=== PATIENT | male | born 1970 | race Caucasian/White ===

== ENCOUNTER 2017-12-02 12:46 | Emergency (ER) | payer BC, SELFPAY ==
[2017-12-02 12:48] VITALS: BP 161/81; PULSE 95; RESP 18; TEMP 37.2; O2SAT 94; BMI 31.7
--- NOTE | 2017-12-02 13:00 | EKG12_ITS ---
Test Reason : Blood Pressure : / mmHG Vent. Rate : 082 BPM Atrial Rate : 082 BPM P-R Int : 152 ms QRS Dur : 084 ms QT Int : 348 ms P-R-T Axes : 049 068 038 degrees QTc Int : 406 ms Normal sinus rhythm Normal ECG Confirmed by MATHEW HARDING MD ([id number]), greeting card editor BRENDA CARLSON ([id number]) on 12/05/2017 8:45:17 AM Referred By: ASTON Confirmed By:MATHEW HARDING MD
[2017-12-02] MEDS: Ipratropium/Albuterol Sulfate 3 ML AMPUL.NEB INHALATION (13:13)
[2017-12-02 13:15] VITALS: PULSE 103; RESP 16; O2SAT 98
--- NOTE | 2017-12-02 13:20 | RAD_ITS ---
STUDY: X-RAY CHEST REASON FOR EXAM: Male, 47 years old. Persistent cough. TECHNIQUE: Single frontal view of the chest. COMPARISON: December 26, 2012 FINDINGS: The lungs are clear and expanded. There is no demonstrated pleural abnormality. Normal size heart. Normal mediastinum and justyna. Normal visualized pulmonary arteries. Normal visualized aortic arch and descending thoracic aorta. Normal visualized thoracic spine. Normal visualized ribs, clavicles, and shoulders. There is no demonstrated abnormality of the visualized soft tissue structures of the upper abdomen. RAD/Chest 1 View (Portable) IMPRESSION: No acute cardiopulmonary process. Electronically Signed: Gayle Cardozo MD at 14:31 EDT Tel , Service support ,
[2017-12-02 13:43] LABS: Anion Gap 7 (5-15); BUN 13 mg/dL (7-18); BUN/Creat Ratio 12.4 RATIO (10-20); Calcium,Total 8.6 mg/dL (8.5-10.1); Chloride 105 mmol/L (98-107); Creatinine, Serum 1.05 mg/dL (0.70-1.30); EST Glomerular Filtration Rate 80 mL/min (>60); Est Glom Filt Rate - Afr Amer 97 mL/min (>60); Estimated Creatinine Clearance 86.04 ml/min; Glucose 96 mg/dL (74-106); Potassium 3.9 mmol/L (3.5-5.1); Sodium Level 140 mmol/L (136-145)
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
[2017-12-02 13:45] LABS: Hematocrit 44.8 % (40-54); Hemoglobin 15.4 g/dl (13.0-16.5); Lymphocyte % 10.4 % (19-41); Mean Corp Hgb Conc 34.4 g/gl (32-36); Mean Corpuscular Hgb 30.3 pg (27.0-32.0); Mean Platelet Vol. 10.3 fl (6.2-12.0); Neutrophil % 74.1 % (47-70); Platelet Count 204 K/mm3 (150-450); RBC Distribution Width CV 11.8 % (11.6-14.6); RBC Distribution Width SD 37.4 fl (35.1-43.9); Red Blood Count 5.09 M/mm3 (4.6-6.2); White Blood Count 6.1 K/mm3 (4.4-11.0)
[2017-12-02 13:46] LABS: Absolute Lymphocyte Count 0.63 X10^3/ul (0.83-4.51); Absolute Neutrophil Count 4.5 X10^3/uL (2.0-7.7); Basophil# 0.04 X10^3/uL; Basophil% 0.7 % (0-1); Eosinophil# 0.22 X10^3/uL; Eosinophils% 3.6 % (0-5); Lymphocyte # 0.63 X10^3/ul (4.0); Monocyte# 0.68 X10^3/uL; Monocyte% 11.2 % (0-10); Neutrophil # 4.49 X10^3/uL (2.7-7.7); POSITIVE COUNT NO; POSITIVE DIFFERENTIAL NO; POSITIVE MORPHOLOGY NO
[2017-12-02 14:12] LABS: BNP,B-Type NATRIURETIC PEPTIDE 2.2 pg/mL (0-100)
--- NOTE | 2017-12-02 14:39 | ED.DEP ---
ED Disposition - Plan for ED Patient: Chief Complaint: Cough Instructions: ED Upper Resp Infec No Abx Tx Prescriptions: Albuterol Inhaler [Ventolin Hfa] 1 - 2 puff INHALATION Q4H PRN PRN #1 inhaler PRN Reason: Wheezing Acetaminophen/Codeine #3 [Tylenol #3 Tablet] 1 tab PO QHS #7 tab Naproxen [Naprosyn] 500 mg PO BID PRN #20 tab Fluticasone Propionate [Flonase Allergy Relief] 15.8 ml NS BID #1 spray.susp Guaifenesin [Mucinex] 1,200 mg PO BID #10 tbmp.12hr Referrals: Deejay Garcia PA [Primary Care Provider] -
[2017-12-02] MEDS: Acetaminophen/Codeine #3 Tablet 1 TABLET PO (15:01)
[2017-12-02 15:05] VITALS: BP 152/78; PULSE 82; RESP 16; O2SAT 98
== END 2017-12-02 15:39 | disposition home or self-care (01) ==
LOC: ED 15:27
PROVIDERS: Emergency Provider Emergency Medicine; Family Provider Physician Assistant; PCP Physician Assistant
DX: J06.9 Acute upper respiratory infection, unspecified (principal); R11.0 Nausea
CPT/HCPCS: 71045; 80048; 83880; 84484; 85025; 93005; 94640; 99285; A4216

== ENCOUNTER 2020-02-03 03:06 | Inpatient (IN) | payer BC, SELFPAY ==
[2020-02-03] VITALS (16 sets, daily range): BP systolic 89–143; BP diastolic 57–98; PULSE 57–144; RESP 15–18; TEMP 35.8–36.6; O2SAT 95–99; BMI 32.8; BMI 31.0
--- NOTE | 2020-02-03 03:10 | EKG12_ITS ---
Test Reason : CP Blood Pressure : / mmHG Vent. Rate : 125 BPM Atrial Rate : 094 BPM P-R Int : 000 ms QRS Dur : 082 ms QT Int : 274 ms P-R-T Axes : 000 082 029 degrees QTc Int : 395 ms Atrial fibrillation Abnormal ECG Confirmed by MATHEW HARDING MD ([id number]), online editor BRENDA CARLSON ([id number]) on 02/04/2020 10:01:21 AM Referred By: SOHA Confirmed By:MATHEW HARDING MD
--- NOTE | 2020-02-03 03:14 | ED.DCSUM_ITS ---
History of Present Illness Chief Complaint: Chest Pain Informant: Patient, Significant Other Onset: Today Context: Sudden Onset Timing: Continuous Quality: Tightness Location: Midsternal Current Severity: Mild Maximum Severity: Severe Worsened by: Nothing Relieved by: Nothing Associated Symptoms: Sweat and dyspnea and heart not right Narrative: Patient is a 49-year-old male who has a past medical history of hypercholesterolemia. He has no known history coronary disease. He has no history of VTE nor does have any risk factors. He denies leg pain, swelling discoloration. He was wake him sleep because of chest discomfort described as tightness with cold sweat and dyspnea. Patient had a positive Ruiz sign. Pain did not radiate. He denies food intolerance. He denies back pain. He denies black or maroon stool. He denies history of peptic ulcer disease. He does drink. He has not had a drink in 36 hours. He has no history of irregular heartbeat. He denies fever, chills night sweats denies weight gain or weight loss. Eyes ocular, visual auditory symptoms. He denies nausea or vomiting. He denies paresthesia, anesthesia motor experience problems with walking or balance. There is no family history coronary disease. When I went into assess patient to determine if the metoprolol slowed his heart rate down he and his stated something similar happened 2 weeks ago. His daughter who is studying to be a nurse stated his heartbeat was irregular at that time. Patient states when he does consume alcoholic beverages he drinks 4 captains and Cokes. He may have had 6 this past Monday. Prior similar symptoms: No Recent Illness/Hospitalization: No - Past Medical History (1) Hypercholesterolemia Status: Chronic Past Medical History - Allergies and Home Meds Allergies/Adverse Reactions: Allergies Iodinated Contrast Media [Iodinated Contrast Media - IV Dye] Allergy (Verified 02/03/20 03:27) Anaphylaxis iodine Allergy (Verified 02/03/20 03:27) Rash Primary Care Physician: Prasanna Alexander MD [STAFF PHYSICIAN] - 02/03/20 Deejay Garcia PA [PHYSICIAN INFORMATION ASSURANCE SPECIALIST] - Prior records reviewed: Yes Surgical History: noncontributory, - - Traumatic injury face and neck left side Lives: Spouse/ Significant Other Smoking Status: Former smoker Alcohol: Occasional Drugs: None Review of Systems General: Denies: Chills, Fever, Sweats, Weight loss Eyes: Denies: Visual changes - bilaterally, Blurred Vision - bilaterally ENT: Denies: Rhinorrhea, Sore throat Cardiovascular: Reports: Chest pain, Palpitations Respiratory: Reports: Dyspnea. Denies: Dyspnea on exertion, Orthopnea, Paroxysmal nocturnal dyspnea Gastrointestinal: Denies: Abdominal pain, Nausea, Vomiting, Diarrhea, Melena, Hematochezia Genitourinary: Denies: Dysuria, Hematuria, Frequency Musculoskeletal: Denies: Myalgias, Arthralgias, Neck pain, Back pain, Swelling, Extremity Pain Skin: Denies: Rash, Wounds Neurological: Denies: Headache, Weakness, Numbness Endocrine: Denies: Polyuria, Polydipsia Hematologic: Denies: Easy bruising, Easy bleeding Physical Exam Vital Signs/Narrative: Vital Signs Temp Pulse Resp BP Pulse Ox 02/03/20 03:06 96.4 F L 144 H 15 127/98 H 99 Inital Vital Signs reviewed: Yes General: Well nourished, Well developed, No Acute Distress Head: Normocephalic, Atraumatic Eyes: Perrl, EOMI ENT: Moist mucous membranes, No rhinorrhea Neck: Supple, Nontender, No lymphadenopathy, No JVD Cardiovascular: No murmurs, Irregular, Tachycardia Respiratory: No distress, CTA bilaterally, Chest nontender Abdomen: Soft, Nontender, Nondistended, Normal bowel sounds Back: Nontender, Normal Inspection. Negative for: CVA tenderness Extremities: Nontender, No edema, - - There is no asymmetry, swelling, discoloration, leg vein distention, palpable cords or tenderness along the distribution of the deep venous system. Skin: Normal color, No rash, No Trauma. Negative for: Cyanosis, Diaphoresis, Jaundice Neurological: Alert, Oriented x3, Cranial nerves II-XII grossly intact, Normal Strength, Normal Sensation, Normal Gait Psychological: Normal affect, Normal Mood Diagnostic/Tx/Re-eval Chest X-Ray - ED: 1 View, Read by ED Physician, - - Single portable view reveals no acute pathology. Cardiac silhouette and size are normal. Mediastinum is normal. There is no infiltrate, pleural effusion or evidence of congestive heart failure. There is no obvious abnormality noted of the musculoskeletal system. Impressions Chest X-Ray 02/03/20 03:20 IMPRESSION: Normal x-ray examination of the chest. Electronically Signed: Alen Thurman MD at 3:56 EDT , Service support , 02/03/20 03:20 Chest 1 View (Portable) [RAD] Stat Laboratory Results 02/03/20 02/03/20 03:10 03:10 WBC 6.0 RBC 5.08 Hgb 15.7 Hct 46.6 MCV 91.7 MCH 30.9 MCHC 33.7 RDW Std Deviation 38.8 RDW Coeff of Katy 11.6 Plt Count 228 MPV 10.1 Immature Gran % (Auto) 0.200 Neut % (Auto) 50.8 Lymph % (Auto) 34.2 Meagher % (Auto) 10.7 H Eos % (Auto) 3.3 Baso % (Auto) 0.8 Absolute Neuts (auto) 3.1 Absolute Lymphs (auto) 2.05 Nucleated RBC % 0 Sodium 143 Potassium 3.6 Chloride 108 H Carbon Dioxide 27.0 Anion Gap 8 BUN 21 H Creatinine 1.12 Estim Creat Clear Calc 78.91 Est GFR (MDRD) Af Amer 89 Est GFR (MDRD) Non-Af 74 BUN/Creatinine Ratio 18.8 Glucose 103 Calcium 8.7 Troponin I < 0.015 TSH 2.08 TSH is normal. Troponin is normal. Basic metabolic panel is unremarkable. CBC is unremarkable. His work-up is unremarkable. 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 Patient will receive second dose of metoprolol. He is to call Dr. Alexander's office later today. He will have an outpatient echo and further work-up. He is to take an aspirin a day. - Rhythm Strip Rhythm Strip: A-fib Rate: 145 Ectopy: None - EKG Initial EKG Interpretation: Atrial Fibrillation - Atrial fibrillation with ventricular rate of 125. QRS duration 82 ms. QT duration 274 ms and the axis is normal. - Medical Decision Making Chest pain that awoke patient from sleep with atrial fibrillation: Differential diagnosis includes PE, cardiac ischemia, holiday heart syndrome, thyroid disease. EKG, chest x-ray and blood work was obtained including TSH. Because he has a rapid heart rate and there is concern for ischemia he received 5 mg of Lopressor IV push. He also received 4 baby aspirin to chew and swallow. With history that this occurred 2 weeks ago concerned this more likely represent holiday heart syndrome and doubt pulmonary embolus. Case was discussed with Dr. Prasanna Alexander. Plan is to discharge to home on beta- jorge and aspirin if heart rate is between 101 110. He is to call the office at 0800 to set up an acute appointment and outpatient echocardiogram. Patient's heart rates has varied between 90 up to 145. He received 2 additional doses of metoprolol. As of 0600 heart rate has ranged between 110 and 140+. He now complains of numbness left ring and little finger. He has a negative Tinel's test. He has a positive Phalen's test. Patient states she has done a lot of work outside with shovel etc. Suspect he has carpal tunnel syndrome. ED Disposition - Plan for ED Patient: Disposition: Home or Assisted Living Diagnosis: Carpal tunnel syndrome of left wrist, Persistent atrial fibrillation with rapid ventricular response Instructions: ED AFIB, ED Carpal Tunnel Prescriptions: Metoprolol Tartrate [Lopressor (beta jorge)] 25 mg PO BID #60 tab Prescription Printed Referrals: Deejay Garcia PA [PHYSICIAN INFORMATION ASSURANCE SPECIALIST] - Prasanna Alexander MD [STAFF PHYSICIAN] - 02/03/20 Additional Instructions: Call Dr. Prasanna Alexander's office at 8 AM. Tell them you were seen in the emergency department and Dr. Carson he wants to see you and set up outpatient echocardiogram. Take a aspirin a day. Take metoprolol as instructed on the bottle.
[2020-02-03 03:18] LABS: Absolute Lymphocyte Count 2.05 X10^3/uL (0.83-4.51); Absolute Neutrophil Count 3.1 X10^3/uL (2.0-7.7); Basophil# 0.05 X10^3/uL; Basophil% 0.8 % (0-1); Eosinophils% 3.3 % (0-5); Hematocrit 46.6 % (40-54); Hemoglobin 15.7 g/dL (13.0-16.5); Lymphocyte # 2.05 X10^3/ul (4.0); Lymphocyte % 34.2 % (19-41); Mean Corp Hgb Conc 33.7 g/dL (32-36); Mean Corpuscular Hgb 30.9 pg (27.0-32.0); Mean Corpuscular Volume 91.7 fL (80-94); Mean Platelet Vol. 10.1 fl (6.2-12.0); Monocyte# 0.64 X10^3/uL; Monocyte% 10.7 % (0-10); NRBC Flagged by Analyzer 0 % (0-5); Neutrophil # 3.05 X10^3/uL (2.7-7.7); Neutrophil % 50.8 % (47-70); Platelet Count 228 K/mm3 (150-450); RBC Distribution Width CV 11.6 % (11.6-14.6); RBC Distribution Width SD 38.8 fl (35.1-43.9); Red Blood Count 5.08 M/mm3 (4.6-6.2)
[2020-02-03] MEDS: Aspirin 81 MG TAB.CHEW 324 MG PO (03:20)
--- NOTE | 2020-02-03 03:20 | RAD_ITS ---
STUDY: X-RAY CHEST REASON FOR EXAM: Male, 49 years old. PT C/O CP HEAVINESS TECHNIQUE: Frontal view COMPARISON: 12/02/2017 FINDINGS: The lungs are clear and expanded. There is no demonstrated pleural abnormality. Normal size heart. Normal mediastinum and justyna. Normal visualized pulmonary arteries. Normal visualized aortic arch and descending thoracic aorta. Normal visualized thoracic spine. Normal visualized ribs, clavicles, and shoulders. There is no demonstrated abnormality of the visualized soft tissue structures of the upper abdomen. RAD/Chest 1 View (Portable) IMPRESSION: Normal x-ray examination of the chest. Electronically Signed: Alen Thurman MD at 3:56 EDT , Service support ,
[2020-02-03] MEDS: Metoprolol Tartrate 5 MG/5 ML Vial IV ×3 (03:21→05:16)
[2020-02-03] MEDS: 0.9% Normal Saline 1,000 ML 150 ML IV ×2 (03:22→08:37)
[2020-02-03 03:40] LABS: Anion Gap 8 (5-15); BUN 21 mg/dL (7-18); BUN/Creat Ratio 18.8 RATIO (10-20); Calcium,Total 8.7 mg/dL (8.5-10.1); Chloride 108 mmol/L (98-107); Creatinine, Serum 1.12 mg/dL (0.70-1.30); EST Glomerular Filtration Rate 74 mL/min (>60); Est Glom Filt Rate - Afr Amer 89 mL/min (>60); Estimated Creatinine Clearance 78.91 ml/min; Glucose 103 mg/dL (74-106); Potassium 3.6 mmol/L (3.5-5.1); Sodium Level 143 mmol/L (136-145); Thyroid Stim Hormone (TSH) 2.08 uIU/mL (0.358-3.74)
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
--- NOTE | 2020-02-03 07:54 | ECHOD_ITS ---
Reason For Study: AFIB W/RVR Procedure This was a 2D Doppler, Color Flow transthoracic echocardiogram. Exam performed portable in patient room. Left Ventricle Normal LV size. Left ventricular systolic function is normal. The estimated ejection fraction is 55 %. Stage 1 diastolic dysfunction. No regional wall motion abnormalities noted. Right Ventricle Normal RV size. Normal systolic function. Atria The left atrium is mildly enlarged. The right atrium is mildly enlarged. Tricuspid Valve Normal tricuspid valve. Aortic Valve Normal aortic valve. Pulmonic Valve Normal pulmonic valve. Great Vessels Normal aortic root. The pulmonary artery is normal size. Normal inferior vena cava. Pericardium/Pleural No pericardial effusion. MMode/2D Measurements & Calculations LVIDd: 5.0 cm IVSd: 0.99 cm Ao root diam: 3.2 cm LVIDs: 3.5 cm LVPWd: 1.1 cm RVDd: 3.6 cm FS: 29.8 % LAV(MOD-bp): 62.2 ml LA A4 area: 19.7 cm2 LA dimension(2D): 3.3 cm LAV(MOD-bp) Indexed: 28.8 ml/m2 LAV(MOD-sp2): 59.9 ml LAV(MOD-sp4): 52.2 ml RA A4 area: 21.5 cm2 Time Measurements MV dec time: 0.16 sec Doppler Measurements & Calculations MV E max brando: 57.7 cm/sec Lat Peak E' Brando: 10.2 cm/sec Med Peak E' Brando: 8.6 cm/sec MV A max brando: 61.7 cm/sec E/E' lat: 5.7 E/E' med: 6.7 MV E/A: 0.94 Ao V2 max: 98.6 cm/sec LV V1 max: 72.2 cm/sec PA V2 max: 63.7 cm/sec Ao max P.9 mmHg LV V1 max P.1 mmHg Interpretation Summary Normal LV size. Left ventricular systolic function is normal. The estimated ejection fraction is 55 %. Stage 1 diastolic dysfunction. The left atrium is mildly enlarged. Ordering Physician: Víctor Gordon Referring Physician: Renetta Ribeiro Performed By: Chelsey Hill RDCS, RVT
[2020-02-03] MEDS: Aspirin 81 MG TAB.CHEW PO (08:20)
[2020-02-03] MEDS: Metoprolol Tartrate 50 MG Tablet PO ×2 (08:20→20:56)
[2020-02-03] MEDS: dilTIAZem 25 MG/5 ML Vial 15 MG IV BOLUS (08:20)
[2020-02-03] MEDS: 0.9% Saline Lock 10 ML Syringe IV ×2 (08:26→11:16)
[2020-02-03 08:30] LABS: Magnesium 2.3 mg/dL (1.6-2.6)
--- NOTE | 2020-02-03 09:10 | CON.PCM_ITS ---
Reason for Consult Date of Consultation: 02/03/20 Reason for Consultation: Rapid heart rate. History of Present Illness: The patient is a 49 year old M with no previous cardiac history who presented to the emergency room today after waking up at 2:30 AM with a rapid heart rate and an unusual feeling in his chest. He checked his pulse with his apple watch and he noted that it was irregular. He had had a similar episode approximately 2 weeks ago. He does not have a history of hypertension and he has been checked for sleep apnea with no issues. He has had no dizziness or diaphoresis no near syncope or syncope he has not had a cough or cold recently. In the emergency room he was noted to be in atrial fibrillation with a rapid ventricular response rate he was initially given intravenous Cardizem with some slowing of his heart rate. The initial plan was to discharge him for outpatient follow-up but his heart rate continued to be high and so a decision was made to admit him. He has been started on oral beta-jorge. [] Past Medical History Allergies/Adverse Reactions: Allergies Iodinated Contrast Media [Iodinated Contrast Media - IV Dye] Allergy (Verified 02/03/20 03:27) Anaphylaxis iodine Allergy (Verified 02/03/20 03:27) Rash Home Medications: Ambulatory Orders Medication Instructions Recorded Co Q10 200 [Co Q-10] 100 mg PO DAILY 12/02/17 Rosuvastatin Calcium 5 mg PO DAILY 12/02/17 Past Medical History (Chronic Problems): Chronic Problems Hypercholesterolemia (Chronic) Surgical History: noncontributory, - - Traumatic injury face and neck left side - *Family History Paternal History Items: Stroke Lives: Spouse/ Significant Other Smoking Status: Former smoker Alcohol: Occasional Drugs: None Review of Systems - Review of Systems General: Denies: Fever, Night Sweats, Fatigue HEENT: Denies: Vision Change Cardiovascular: Reports: Shortness of Breath, Palpitations. Denies: Chest Discomfort, Orthopnea, PND, Peripheral Edema, Lightheadedness, Dizziness, Near Syncope, Syncope Respiratory: Denies: Cough, Sputum Production, Hemoptysis Gastrointestinal: Denies: Hematemesis, Hematochezia, Melena Genitourinary: Denies: Dysuria, Hematuria Muscoloskeletal: Denies: Myalgias Skin: Denies: Rash Neurological: Denies: Dizziness Psychiatric: Denies: Anxiety Endocrine: Denies: Unexplained Weight Loss Hematologic/ Lymphatic: Denies: Anemia Subjectve: Patient seen and evaluated and appears to be stable. Objective: Vital Signs Temp Pulse Resp BP Pulse Ox 97.4 F L 124 H 16 123/58 H 98 02/03/20 08:00 02/03/20 08:20 02/03/20 08:00 02/03/20 08:20 02/03/20 08:00 Oxygen Flow Rate (L/min) 1 Oxygen Delivery Method Room Air Weight: 210 lb Body Mass Index (BMI) 31.0 Intake and Output for Last 24 Hours 02/01/20 02/02/20 02/03/20 23:59 23:59 23:59 Intake Total 800 / 800 Balance 800 / 800 General: Awake, Alert, Oriented x 3 HEENT: PERRL, EOMI, Sclera Non Icteric Neck: Supple, Good ROM, No Lymph Node Enlargement Lungs: Clear to auscultation Cardiovascular: Irregular Rhythm, Normal S1, Normal S2, No Murmurs, No Rubs, No Gallops Vascular: No Carotid Bruits, Normal Femoral Pulses, Normal Radial Pulses, Normal Dorsalis Pedal Pulse, Normal Posterior Tibial Pulses Abdomen: Bowel Sounds Present, Soft, Non Tender, No HSM, No Organomegaly Extremities: No Cyanosis, No Clubbing, No edema Musculoskeletal: No Erythema Skin: No Rashes Neurological: No Focal Motor or Sensory Deficit Psych/Mental Status: Appropriate 02/03/20 03:10: WBC 6.0, RBC 5.08, Hgb 15.7, Hct 46.6, MCV 91.7, MCH 30.9, MCHC 33.7, Plt Count 228, MPV 10.1, Immature Gran % (Auto) 0.200, Neut % (Auto) 50.8, Lymph % (Auto) 34.2, [place] % (Auto) 10.7 H, Eos % (Auto) 3.3, Baso % (Auto) 0.8, Absolute Neuts (auto) 3.1, Nucleated RBC % 0 02/03/20 03:10: Sodium 143, Potassium 3.6, Chloride 108 H, Carbon Dioxide 27.0, Anion Gap 8, BUN 21 H, Creatinine 1.12, Est GFR (MDRD) Af Amer 89, Est GFR (MDRD) Non-Af 74, BUN/Creatinine Ratio 18.8, Glucose 103, Calcium 8.7, Troponin I < 0.015 02/03/20 08:06: Magnesium 2.3, Troponin I < 0.015 Rhythm: EKG: Atrial fibrillation with a rapid ventricular response rate. ECHO: Pending Stress Test: Cardiac Cath: PCI: CT Surgery: Holter monitor: EPS: PPM: CXR: Chest CT Scan: Assessment/Plan 1. Recent onset atrial fibrillation(paroxysmal) * He presents with his second episode of paroxysmal atrial fibrillation. His chads vasc score is 0. At this time however I would suggest that we obtain an echocardiogram to assess his left ventricular function and anticoagulate him temporarily. If he does not convert within the next 12 to 24 hours he will be cardioverted and then etiology for his atrial fibrillation will be sought. * Will continue him on beta-jorge for now * Agree with Eliquis for short term * Above discussed with him he understands and agrees to proceed. * * Thank you for allowing me to participate in the care of your patient. Please don't hesitate to call if any issues arise.
[2020-02-03] MEDS: APIXABAN 5 MG TABLET PO ×2 (11:14→20:56)
[2020-02-03] MEDS: dilTIAZem 25 MG/5 ML Vial 10 MG IV BOLUS (11:14)
--- NOTE | 2020-02-03 13:08 | EKG12_ITS ---
Test Reason : RHYTHM CHANGE Blood Pressure : / mmHG Vent. Rate : 070 BPM Atrial Rate : 070 BPM P-R Int : 170 ms QRS Dur : 096 ms QT Int : 376 ms P-R-T Axes : 054 072 035 degrees QTc Int : 406 ms Normal sinus rhythm Normal ECG When compared with ECG of 02-DEC-2017 13:09, No significant change was found Confirmed by MEAGHAN MELVIN, MATHEW ([id number]), medical editor BRENDA CARLSON ([id number]) on 02/04/2020 10:26:24 AM Referred By: AR Confirmed By:MATHEW HARDING MD
--- NOTE | 2020-02-03 14:48 | CASEMGMT ---
This RN CM to room x2 to see pt without success. Pt was on cell phone the first time and then ECHO at bedside the 2nd. This RN CM will attempt again later or tomorrow, if needed. SStaten RN CM
[2020-02-03] MEDS: Atorvastatin Calcium 40 MG Tablet PO (20:56)
[2020-02-04] VITALS (7 sets, daily range): BP systolic 120–123; BP diastolic 65–80; PULSE 58–70; RESP 18; TEMP 36.4–36.6; O2SAT 94–97
[2020-02-04 05:44] LABS: Absolute Lymphocyte Count 1.21 X10^3/uL (0.83-4.51); Absolute Neutrophil Count 2.4 X10^3/uL (2.0-7.7); Basophil# 0.03 X10^3/uL; Basophil% 0.7 % (0-1); Eosinophil# 0.14 X10^3/uL; Eosinophils% 3.5 % (0-5); Hematocrit 40.6 % (40-54); Hemoglobin 13.4 g/dL (13.0-16.5); Lymphocyte # 1.21 X10^3/ul (4.0); Mean Corpuscular Hgb 30.6 pg (27.0-32.0); Mean Corpuscular Volume 92.7 fL (80-94); Mean Platelet Vol. 10.7 fl (6.2-12.0); Monocyte# 0.27 X10^3/uL; Monocyte% 6.7 % (0-10); NRBC Flagged by Analyzer 0 % (0-5); Neutrophil # 2.37 X10^3/uL (2.7-7.7); Neutrophil % 58.9 % (47-70); Platelet Count 181 K/mm3 (150-450); RBC Distribution Width CV 11.6 % (11.6-14.6); RBC Distribution Width SD 39.4 fl (35.1-43.9); Red Blood Count 4.38 M/mm3 (4.6-6.2)
[2020-02-04 06:03] LABS: Anion Gap 4 (5-15); BUN 16 mg/dL (7-18); BUN/Creat Ratio 17.8 RATIO (10-20); Calcium,Total 8.2 mg/dL (8.5-10.1); Chloride 108 mmol/L (98-107); Cholesterol 156 mg/dL (200); EST Glomerular Filtration Rate 95 mL/min (>60); Est Glom Filt Rate - Afr Amer 115 mL/min (>60); Estimated Creatinine Clearance 98.19 ml/min; Glucose 100 mg/dL (74-106); High Density Lipoprotein 39 mg/dL; Sodium Level 140 mmol/L (136-145); Triglycerides 92 mg/dL; Very Low Density Lipoprotein 18 mg/dL (5-40)
--- NOTE | 2020-02-04 07:52 | PN.CARD_ITS ---
Subjectve: Patient seen and evaluated. Appears to be doing well. Objective: Vital Signs Temp Pulse Resp BP Pulse Ox 97.9 F 58 L 18 123/65 H 94 02/04/20 02:50 02/04/20 06:54 02/04/20 02:50 02/04/20 02:50 02/04/20 07:30 Oxygen Flow Rate (L/min) 1 Oxygen Delivery Method Room Air Weight: 210 lb Body Mass Index (BMI) 31.0 Intake and Output for Last 24 Hours 02/02/20 02/03/20 02/04/20 23:59 23:59 23:59 Intake Total 2400 / 2650 400 / 400 Balance 2400 / 2650 400 / 400 General: Awake, Alert, Oriented x 3 HEENT: PERRL, EOMI, Sclera Non Icteric Neck: Supple, Good ROM, No Lymph Node Enlargement Lungs: Clear to auscultation Cardiovascular: Regular Rhythm, Normal S1, Normal S2, No Murmurs, No Rubs, No Gallops Vascular: No Carotid Bruits, Normal Femoral Pulses, Normal Radial Pulses, Normal Dorsalis Pedal Pulse, Normal Posterior Tibial Pulses Abdomen: Bowel Sounds Present, Soft, Non Tender, No HSM, No Organomegaly Extremities: No Cyanosis, No Clubbing, No edema Neurological: No Focal Motor or Sensory Deficit 02/03/20 08:06: Magnesium 2.3, Troponin I < 0.015 02/03/20 10:50: Troponin I < 0.015 02/04/20 05:15: WBC 4.0 L, RBC 4.38 L, Hgb 13.4, Hct 40.6, MCV 92.7, MCH 30.6, MCHC 33.0, Plt Count 181, MPV 10.7, Immature Gran % (Auto) 0.200, Neut % (Auto) 58.9, Lymph % (Auto) 30.0, [place] % (Auto) 6.7, Eos % (Auto) 3.5, Baso % (Auto) 0.7, Absolute Neuts (auto) 2.4, Nucleated RBC % 0 02/04/20 05:15: Sodium 140, Potassium 4.0, Chloride 108 H, Carbon Dioxide 28.0, Anion Gap 4 L, BUN 16, Creatinine 0.90, Est GFR (MDRD) Af Amer 115, Est GFR (MDRD) Non-Af 95, BUN/Creatinine Ratio 17.8, Glucose 100, Calcium 8.2 L, Triglycerides 92, Cholesterol 156, LDL Cholesterol 99, VLDL Cholesterol 18, HDL Cholesterol 39 L Rhythm: EKG: ECHO: Stress Test: Cardiac Cath: PCI: CT Surgery: Holter monitor: EPS: PPM: CXR: Chest CT Scan: Medical Necessity - Tobacco Use Smoking Status: Never smoker Assessment/Plan 1. Recent onset atrial fibrillation(paroxysmal) * He presents with his second episode of paroxysmal atrial fibrillation. * He converted to sinus rhythm spontaneously. He is doing well. His echocardi ogram demonstrated preserved left ventricular ejection fraction. The etiology of his atrial fibrillation is thus undetermined at this particular time. * Will continue him on beta-jorge for now * Agree with Eliquis for short term * Above discussed with him he understands and agrees to proceed. * He can be discharged for outpatient follow-up to see me in 2 to 4 weeks. * Thank you for allowing me to participate in the care of your patient. Please don't hesitate to call if any issues arise.
[2020-02-04] MEDS: Metoprolol Tartrate 50 MG Tablet PO (08:46)
--- NOTE | 2020-02-04 10:02 | CASEMGMT ---
ANANTH JOSE assessment: Face to Face with patient for initial transition planning/care coordination assessment. ANANTH JOSE introduced self and role at [facility], pt voices understanding and consents to assessment at this time. Pt is sitting up in bed in no distress at this time. Pt is A/Ox4 at this time and answers all questions appropriately at this time. Care providers, pharmacy, and demographics verified at this time. Presentation: chest heaviness Admitting dx: Afib RVR/CP PCP: [facility] Specialists: Pt states no previous specialists but plans to see Dr. Alexander in f/u. Preferred Pharmacy: [facility] [place] Insurance: Ronan Prescription Benefit: Ronan Living Will/HPOA: Pt states does not have LW/HPOA but would like AD info at this time. Pt states does not want to complete at this time. Pt provided with AD info at this time. LNOK: [facility], Living Arrangements: Pt states lives with in home and states no concerns at home at this time. Pt states is independent with ADL's. Transportation: Pt states drives self and states no transportation concerns at this time. DME/HHC: Pt states no current DME or need for any at this time. Pt states no hx of HHC or SNF in the past. Pt states no concerns with going home at time of discharge. 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 Pt states does not smoke cigarettes but does drink ETOH occasionally. Pt states no further concerns/needs at this time. CM to follow for Eliquis co-pay and for any further discharge planning/needs. Advised pt to ask for CM if any further questions/concerns/needs arise, voices understanding. Pt Goal: Home Plan: Home [place] ANANTH JOSE
--- NOTE | 2020-02-04 10:35 | DCINST_ITS ---
- Discharge Diagnoses Current Active Problems: Current Active and Chronic Problems Carpal tunnel syndrome of left wrist (Acute) Persistent atrial fibrillation with rapid ventricular response (Acute) Atypical chest pain (Acute) You will use the following diet at home:: Cardiac Your food should be the consistency of: Regular Discharge Activity: Return to Normal Activity Call your doctor if you observe: Fever of 101 or Higher, Coldness, Increased Pain, Numbness or Tingling, Change in Color, Inability to urinate, Inability to have a bowel movement, Shortness of breath, Dizziness, Fainting spells, Swelling in the ankles, Chest pain, Prolonged hiccoughing, Increased palpitations (irregular heartbeat), Calf discomfort, Uncontrolled pain Instructions: ED AFIB, ED Carpal Tunnel Allergies/Adverse Reactions: Allergies Iodinated Contrast Media [Iodinated Contrast Media - IV Dye] Allergy (Verified 02/03/20 03:27) Anaphylaxis iodine Allergy (Verified 02/03/20 03:27) Rash Medications to take at Discharge Co Q10 200 [Co Q-10] 100 mg PO DAILY 12/02/17 Rosuvastatin Calcium 5 mg PO DAILY 12/02/17 Apixaban [Eliquis] 5 mg PO BID #60 tab 02/04/20 Metoprolol Tartrate 25 mg PO BID #60 tab 02/04/20 The following prescriptions were given: Apixaban [Eliquis] 5 mg PO BID #60 tab Metoprolol Tartrate 25 mg PO BID #60 tab Primary Care Physician: Prasanna Alexander MD [STAFF PHYSICIAN] - 02/03/20 Deejay Garcia PA [PHYSICIAN CONSUMER RELATIONS COMPLAINT CLERK] - Test Results: Test results from this visit will be discussed in further detail at your follow- up appointment, if applicable. Please Follow Up With: Deejay Garcia PA When: IN 2 WEEKS Please Follow Up With: Parsanna Alexander MD When: IN 2-3 WEEKS
--- NOTE | 2020-02-04 10:37 | DS.PCM_ITS ---
Discharge Date and Diagnosis Date of Admission: 02/03/20 Date of Discharge: 02/04/20 - Primary Discharge Diagnosis Acute Problems: Active Problems Carpal tunnel syndrome of left wrist (Acute) Paroxysmal atrial fibrillation with rapid ventricular response (Acute) Atypical chest pain (Acute) Acute coronary syndrome ruled out. - Secondary Discharge Diagnosis Chronic Problems: Chronic Problems Hypercholesterolemia (Chronic) Hospital Course and Treatment Summary of Care Provided: [] The patient is a 49 year old M with history of dyslipidemia on rosuvastatin came to ER with chest tightness. In ED, EKG shows A. fib. EKG A. fib at 125 bpm. Previous EKG was normal sinus rhythm 82 bpm in November 2017. Patient had 3 doses of 5 mg IV Lopressor and was still tachycardic therefore admitted. Chest x-ray no acute abnormality. 1. A. fib with RVR, new onset: Patient is being admitted in the PCU. Patient was treated with Cardizem 15 mg IV bolus and then 10 mg IV bolus. Started on metoprolol 50 mg twice daily and patient converted to normal sinus rhythm in afternoon on 02/03/2020. Patient heart rate is stays in low 60s therefore dose of metoprolol decreased to 25 mg twice daily. Advised the patient to titrate up in consultation with PCP if heart rate goes more than 100, goal rate 60 to 80/min. Patient is discharged on Eliquis 5 mg twice daily. Echo EF 55%, stage I diastolic dysfunction, LA mildly enlarged. Fasting lipid profile within normal limit. LDL 99. 2. Chest tightness/atypical chest pain: Most probably secondary to A. fib with RVR. As mentioned above. Cardiology consult appreciated. Serial troponins negative. Magnesium 2.3. 3. Dyslipidemia: At home, patient is on rosuvastatin 5 mg daily. Advised to increase to 10 mg daily. DVT prophylaxis: As mentioned above Discharge medication reconciliation done. Discharge follow-up instructions completed. Discharge process discussed with the patient and all questions were answered to patient's satisfaction. Follow-up with Dr. mariano in 2 to 4 weeks. 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 Advised to follow with PCP before resumption driving. I also advised to call PCP or come to ER if patient feels dizzy, lightheaded or heart rate more than 120 or palpitation. Patient and her questions were answered Patient was admitted as inpatient but was discharged because of sooner recovery than expected. Total time spent, exact 35 minutes on discharge meds reconciliation, examination, coordination of care with nurses and ancillary staff, review of imaging and blood test and discussion with the patient on follow-up instructions Objective: Seen and examined General: Alert, Oriented x3, Cooperative HEENT: Atraumatic, PERRLA, EOMI, Normocephalic Oral: No Gingival or Mucosal Lesions/ Ulcerations, Dry Mucosa Neck: Supple, No JVD, Negative Carotid Bruits Lungs: Clear to auscultation, Normal air movement, No rhonchi, No wheeze, No rales Cardiovascular: No murmurs, patient converted to normal sinus rhythm on 02/02. Monitor shows sinus rhythm. Abdomen: Bowel Sounds Present, Soft, Non Tender, Non-Distended Extremities: No edema, Capillary Refill Less than 3 Seconds Skin: No rashes, No breakdown Musculoskeletal: No Tenderness to Palpation of Joints or Extremities, Arthritic Changes Neurological: Cranial nerves II-XII grossly intact, Deep Tendon Reflexes 2+/4 and Symmetrical, Neuro grossly intact, Motor Exam 5/5 strength throughout Psych/Mental Status: Normal Affect, Appropriate - Physical Exam Vitals/I&O's: Vital Signs Temp Pulse Resp BP Pulse Ox 97.6 F L 67 18 120/80 96 02/04/20 09:00 02/04/20 09:00 02/04/20 09:00 02/04/20 09:00 02/04/20 09:00 Oxygen Flow Rate (L/min) 1 Oxygen Delivery Method Room Air Weight: 210 lb Body Mass Index (BMI) 31.0 Intake and Output for Last 24 Hours 02/02/20 02/03/20 02/04/20 23:59 23:59 23:59 Intake Total 2400 / 2650 400 / 400 Balance 2400 / 2650 400 / 400 Laboratory Results 02/03/20 10:50: Troponin I < 0.015 02/04/20 05:15: WBC 4.0 L, RBC 4.38 L, Hgb 13.4, Hct 40.6, MCV 92.7, MCH 30.6, MCHC 33.0, RDW Std Deviation 39.4, RDW Coeff of [place] 11.6, Plt Count 181, MPV 10.7, Immature Gran % (Auto) 0.200, Neut % (Auto) 58.9, Lymph % (Auto) 30.0, [place] % (Auto) 6.7, Eos % (Auto) 3.5, Baso % (Auto) 0.7, Absolute Neuts (auto) 2.4, Absolute Lymphs (auto) 1.21, Nucleated RBC % 0 02/04/20 05:15: Sodium 140, Potassium 4.0, Chloride 108 H, Carbon Dioxide 28.0, Anion Gap 4 L, BUN 16, Creatinine 0.90, Estim Creat Clear Calc 98.19, Est GFR (MDRD) Af Amer 115, Est GFR (MDRD) Non-Af 95, BUN/Creatinine Ratio 17.8, Glucose 100, Calcium 8.2 L, Triglycerides 92, Cholesterol 156, LDL Cholesterol 99, VLDL Cholesterol 18, HDL Cholesterol 39 L Current Medications Acetaminophen (Tylenol) 650 mg PO Q6H PRN PRN PRN Reason: Pain Score 1-3 /Temp>100.7 Al Hydroxide/Mg Hydroxide (Mylanta Ii) 30 ml PO Q6H PRN PRN PRN Reason: Gastric Burning Albuterol Sulfate (Ventolin Aerosols) 2.5 mg INHALATION Q2H PRN PRN PRN Reason: SOB/Wheezing Atorvastatin Calcium (Lipitor) 40 mg PO QHS [facility] Last Admin: 02/03/20 20:56 Dose: 40 mg Documented by: Dextrose (D50w Syringe) 0 gm IV X1 PRN; Protocol PRN Reason: Hypoglycemia Glucagon () 1 mg IM .X1 PRN PRN Reason: Hypoglycemia Metoprolol Tartrate (Lopressor (Beta Janna)) 50 mg PO BID [facility] Last Admin: 02/04/20 08:46 Dose: 50 mg Documented by: Morphine Sulfate () 2 mg IV Q3H PRN PRN PRN Reason: Pain Score 6-10/10 Nitroglycerin (Nitrostat) 0.4 mg SUBLINGUAL Q5M PRN PRN Reason: CARDIAC/CHEST PAIN Ondansetron HCl (Zofran) 4 mg IV Q8H PRN PRN PRN Reason: NAUSEA/VOMITING Oxycodone HCl (Oxyir) 5 mg PO Q4H PRN PRN PRN Reason: Pain Score 4-5/10 Polyethylene Glycol (Miralax) 17 gm PO DAILY PRN PRN Reason: constipation Senna/Docusate Sodium (Senokot-S, Marcia-Colace) 2 tablet PO BID PRN PRN PRN Reason: Constipation Sodium Chloride () 10 - 40 ml IV UD PRN PRN Reason: SALINE FLUSH Last Admin: 02/03/20 11:16 Dose: 10 ml Documented by: Discharge Activity: Return to Normal Activity Call your doctor if you observe: Fever of 101 or Higher, Coldness, Increased Pain, Numbness or Tingling, Change in Color, Inability to urinate, Inability to have a bowel movement, Shortness of breath, Dizziness, Fainting spells, Swelling in the ankles, Chest pain, Prolonged hiccoughing, Increased palpitations (irregular heartbeat), Calf discomfort, Uncontrolled pain Home Medications: Medications to take at Discharge Co Q10 200 [Co Q-10] 100 mg PO DAILY 12/02/17 Rosuvastatin Calcium 5 mg PO DAILY 12/02/17 Apixaban [Eliquis] 5 mg PO BID #60 tab 02/04/20 Metoprolol Tartrate 25 mg PO BID #60 tab 02/04/20 Following Prescrptions Were Given to Patient: Apixaban [Eliquis] 5 mg PO BID #60 tab Transmission Status: Received by [employer] [facility] Metoprolol Tartrate 25 mg PO BID #60 tab Transmission Status: Received by [employer] [facility] Primary Care Physician: Prasanna Mariano MD [STAFF PHYSICIAN] - 02/03/20 Deejay Garcia PA [PHYSICIAN SUPERVISOR PUMPING] - Please Follow Up With: Deejay Garcia PA When: IN 2 WEEKS Please Follow Up With: Prasanna Mariano MD When: IN 2-3 WEEKS Patient Instructions: ED AFIB, ED Carpal Tunnel Medical Necessity - Tobacco Use Smoking Status: Never smoker Meaningful Use Info Meaningful Use Diagnoses (Choose all that apply): None applicable OBSV E&M: 61431 Observation care discharge Multi Select Codes - Visit Charges Visit Charges: 70122 Disch Hosp
--- NOTE | 2020-02-04 11:04 | CASEMGMT ---
Pt to be sent home on Eliquis at discharge and med already e-scribed to [facility]. Call to [facility] and per Chaya, pt's co-pay is $110 at this time but she is unsure if any of this is deductible. Pt updated and provided with Eliquis $10 co-pay card at this time, voices understanding. Leti WADSWORTH CM
--- NOTE | 2020-02-04 11:54 | PHA.DC.MC ---
Pharmacy Service has performed discharge medication reconciliation and counseling for this patient. 1. APIXABAN 5MG PO BID 2. METOPROLOL TARTRATE 25MG PO BID The patient's discharge medication list was reviewed for discrepancies and discrepancies were resolved. Home Medications Co Q10 200 [Co Q-10] 100 mg PO DAILY 12/02/17 Rosuvastatin Calcium 5 mg PO DAILY 12/02/17 Apixaban [Eliquis] 5 mg PO BID #60 tab 02/04/20 Metoprolol Tartrate 25 mg PO BID #60 tab 02/04/20 The patient was counseled on the following discharge medications and changes in medications for homegoing were reviewed. The Reason for Use, instructions for use, and potential side effects were reviewed for all new medications. The patient's questions regarding all of their medications were answered. The patient was able to verbally demonstrate an understanding of their discharge medications.
== END 2020-02-04 12:28 | disposition home or self-care (01) | DRG 310 ==
LOC: ED 04:20 → PCU 07:57
PROVIDERS: Admitting Provider Family Medicine; Emergency Provider Emergency Medicine; PCP Nurse Practitioner Family; Visit Provider Internal Medicine
DX: I48.19 Other persistent atrial fibrillation (principal); R07.89 Other chest pain; G56.02 Carpal tunnel syndrome, left upper limb; E78.00 Pure hypercholesterolemia, unspecified; Z87.891 Personal history of nicotine dependence; Z79.899 Other long term (current) drug therapy; G47.9 Sleep disorder, unspecified
CPT/HCPCS: 36415; 71045; 80048; 80061; 83735; 84443; 84484; 85025; 93005; 93306; 99285; J7030; Q9957; A4216

== ENCOUNTER 2020-03-23 00:45 | Emergency (ER) | payer BC, SELFPAY ==
[2020-02-26 14:56] VITALS: BMI 30.1
[2020-03-23 00:46] VITALS: BP 164/93; PULSE 84; RESP 16; TEMP 37; O2SAT 97; BMI 30.9
--- NOTE | 2020-03-23 01:03 | EKG12_ITS ---
Test Reason : PALPITATIONS Blood Pressure : / mmHG Vent. Rate : 087 BPM Atrial Rate : 087 BPM P-R Int : 152 ms QRS Dur : 090 ms QT Int : 374 ms P-R-T Axes : 062 078 032 degrees QTc Int : 450 ms Normal sinus rhythm Normal ECG Confirmed by MEAGHAN MELVIN, MATHEW ([id number]), editor managing newspaper BRENDA CARLSON ([id number]) on 03/23/2020 1:26:51 PM Referred By: FREEMAN Confirmed By:MATHEW HARDING MD
[2020-03-23 01:06] VITALS: O2SAT 94
[2020-03-23 01:14] LABS: Absolute Lymphocyte Count 1.57 X10^3/uL (0.83-4.51); Basophil# 0.05 X10^3/uL; Basophil% 0.8 % (0-1); Eosinophil# 0.17 X10^3/uL; Eosinophils% 2.7 % (0-5); Hematocrit 43.7 % (40-54); Hemoglobin 14.8 g/dL (13.0-16.5); Lymphocyte # 1.57 X10^3/ul (4.0); Lymphocyte % 24.9 % (19-41); Mean Corp Hgb Conc 33.9 g/dL (32-36); Mean Corpuscular Hgb 30.1 pg (27.0-32.0); Mean Platelet Vol. 10.7 fl (6.2-12.0); Monocyte# 0.51 X10^3/uL; Monocyte% 8.1 % (0-10); NRBC Flagged by Analyzer 0 % (0-5); Neutrophil # 3.99 X10^3/uL (2.7-7.7); Neutrophil % 63.3 % (47-70); Platelet Count 233 K/mm3 (150-450); RBC Distribution Width CV 11.3 % (11.6-14.6); RBC Distribution Width SD 36.2 fl (35.1-43.9); Red Blood Count 4.91 M/mm3 (4.6-6.2); White Blood Count 6.3 K/mm3 (4.4-11.0)
[2020-03-23] MEDS: Aspirin 81 MG TAB.CHEW 324 MG PO (01:20)
[2020-03-23] MEDS: 0.9% Normal Saline 1,000 ML 150 ML IV (01:20)
[2020-03-23] MEDS: APIXABAN 5 MG TABLET PO (01:21)
[2020-03-23 01:24] LABS: Alcohol, Blood (Medical)-Serum < 3.0 mg/dL
--- NOTE | 2020-03-23 01:25 | RAD_ITS ---
STUDY: X-RAY CHEST REASON FOR EXAM: Male, 49 years old. Chest pressure, palpitations, history of atrial fibrillation. TECHNIQUE: AP portable chest. COMPARISON: February 03, 2020. FINDINGS: The lungs are clear and expanded. There is no demonstrated pleural abnormality. Normal size heart. Normal mediastinum and justyna. Normal visualized pulmonary arteries. Normal visualized aortic arch and descending thoracic aorta. Normal visualized thoracic spine. Normal visualized ribs, clavicles, and shoulders. There is no demonstrated abnormality of the visualized soft tissue structures of the upper abdomen. RAD/Chest 1 View (Portable) IMPRESSION: Normal x-ray examination of the chest. Electronically Signed: Magnus Beltran MD at 2:25 EDT , Service support ,
[2020-03-23 01:28] LABS: Anion Gap 5 (5-15); BUN 21 mg/dL (7-18); BUN/Creat Ratio 16.2 RATIO (10-20); Calcium,Total 8.7 mg/dL (8.5-10.1); Chloride 106 mmol/L (98-107); EST Glomerular Filtration Rate 62 mL/min (>60); Est Glom Filt Rate - Afr Amer 75 mL/min (>60); Estimated Creatinine Clearance 67.98 ml/min; Glucose 113 mg/dL (74-106); Potassium 3.9 mmol/L (3.5-5.1); Sodium Level 140 mmol/L (136-145)
--- NOTE | 2020-03-23 02:24 | ED.DCSUM_ITS ---
- ER Visit Summary Date of Service: 03/23/20 Chief Complaint: Atrial fibrillation History of Present Illness: The patient is a [address] Black and Dr. Alexander. Patient reports that he was admitted last month for new onset atrial fibrillation. He is on metoprolol and Eliquis. He states that he forgot to take the dose of those last night. Patient ports approximate 30 minutes ago he feels as though he went into atrial fibrillation again. He denies sensing the palpitations. However, he feels a substernal pressure. States it was 6 out of 10 at worst and is 1 out of 10 currently. Is worsened by exertion and relieved by rest. Does report that it made him nauseated, short of breath, and diaphoretic. He had an echocardiogram when he was admitted. He saw in follow-up and it was felt that he did not need a stress test. Patient reports that between then and today he has not had any chest pain or change in dyspnea exertion. Physical Examination: Vitals: Stable. Afebrile. General: Well-nourished and well-developed. Head: Normocephalic atraumatic. Neck: Supple, no lymphadenopathy. No JVD. Nontender. Cardiovascular: Regular rate and rhythm. No murmurs. Respiratory: No respiratory distress. Clear to auscultation bilaterally. Abdominal: Soft, nontender, nondistended, normal bowel sounds. No guarding, rebound, or peritoneal signs. Back: Nontender. Extremities: Nontender, no edema. Skin: Normal color, no rash. Neurologic: Alert and oriented ?3. Cranial nerves II through XII are intact. Normal strength and sensation. Psych: Normal affect. Test Results: EKG is sinus at 87 with no acute changes. Is unchanged from February 02. Repeat EKG is unchanged. Troponin is negative. 3-hour troponin is negative. Chem-7 shows a BUN 21 glucose 113. CBC is normal. Chest x-ray shows no acute disease. Emergency Department Course and Treatment: Patient has been observed over the course of 3 hours in the emerge department. He is stayed in sinus rhythm. He feels well and would like to go home. Treatment Plan: Patient was discussed with Dr. Cruz. He will be discharged with instructions to continue his Eliquis and follow-up with Dr. Thorpe for an outpatient stress test. Return to the emergency department for any concerns. Disposition: To home in improved and stable condition. Impression: 1. Paroxysmal atrial fibrillation. 2. Coagulopathy on Eliquis. 3. Atypical chest pain. 4. JERROD score of 1. This note was generated with [employer] dictation software. It may contain incorrect words, spelling, and punctuation that were not noted in review of the chart prior to signing ED Disposition - Plan for ED Patient: Instructions: ED AFIB Prescriptions: Apixaban [Eliquis] 5 mg PO BID #60 tablet Referrals: Prasanna Alexander MD [STAFF PHYSICIAN] - Additional Instructions: Call Dr. Alexander's office to schedule a stress test.
[2020-03-23 02:30] VITALS: BP 165/84; PULSE 81; RESP 16; O2SAT 94
--- NOTE | 2020-03-23 03:13 | EKG12_ITS ---
Test Reason : REPEAT Blood Pressure : / mmHG Vent. Rate : 071 BPM Atrial Rate : 071 BPM P-R Int : 150 ms QRS Dur : 098 ms QT Int : 392 ms P-R-T Axes : 048 070 035 degrees QTc Int : 425 ms Normal sinus rhythm Normal ECG Confirmed by MATHEW HARDING MD ([id number]), editor city BRENDA CARLSON ([id number]) on 03/23/2020 1:27:01 PM Referred By: FREEMAN Confirmed By:MATHEW HARDING MD
[2020-03-23 03:22] VITALS: BP 151/84; PULSE 78; RESP 16; O2SAT 96
[2020-03-23 04:09] VITALS: BP 137/85; PULSE 78; RESP 20; O2SAT 94
[2020-03-23 04:44] VITALS: BP 135/81; PULSE 78; RESP 16; O2SAT 98
== END 2020-03-23 04:44 | disposition home or self-care (01) ==
PROVIDERS: Emergency Provider Emergency Medicine; PCP Nurse Practitioner Family
DX: I48.0 Paroxysmal atrial fibrillation (principal); D68.9 Coagulation defect, unspecified; R07.89 Other chest pain; Z79.01 Long term (current) use of anticoagulants
CPT/HCPCS: 71045; 80048; 80320; 84484; 85025; 93005; 99284; A4216; G0480

== ENCOUNTER 2020-06-30 06:06 | Day surgery (SDC) | payer OTHER, BC, SELFPAY ==
[2020-06-22 09:42] VITALS: BMI 31.0
[2020-06-29 10:52] LABS: Hematocrit 49.9 % (40-54); Hemoglobin 16.4 g/dL (13.0-16.5); Mean Corp Hgb Conc 32.9 g/dL (32-36); Mean Corpuscular Hgb 30.1 pg (27.0-32.0); Mean Corpuscular Volume 91.7 fL (80-94); Mean Platelet Vol. 10.2 fl (6.2-12.0); Platelet Count 225 K/mm3 (150-450); RBC Distribution Width CV 11.5 % (11.6-14.6); RBC Distribution Width SD 38.7 fl (35.1-43.9); Red Blood Count 5.44 M/mm3 (4.6-6.2); White Blood Count 5.5 K/mm3 (4.4-11.0)
[2020-06-29 11:15] LABS: Anion Gap 4 (5-15); BUN 15 mg/dL (7-18); BUN/Creat Ratio 12.8 RATIO (10-20); Chloride 107 mmol/L (98-107); Creatinine, Serum 1.17 mg/dL (0.70-1.30); EST Glomerular Filtration Rate 70 mL/min (>60); Est Glom Filt Rate - Afr Amer 85 mL/min (>60); Glucose 102 mg/dL (74-106); Potassium 4.4 mmol/L (3.5-5.1); Sodium Level 140 mmol/L (136-145)
--- NOTE | 2020-06-30 06:00 | HP_ITS ---
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 Is patient in pain?: No Allergies Iodinated Contrast Media [Iodinated Contrast Media - IV Dye] Allergy (Verified 06/22/20 09:43) Anaphylaxis iodine Allergy (Verified 06/22/20 09:43) Rash Medications Co Q10 200 [Co Q-10] 100 mg PO DAILY 12/02/17 [History Confirmed 06/22/20] Rosuvastatin Calcium 5 mg PO DAILY 12/02/17 [History Confirmed 06/22/20] modafinil 200 mg tablet 200 mg PO DAILY PRN tab 02/26/20 [History Confirmed 06/22/20] aspirin 81 mg tablet,delayed release 81 mg PO DAILY 06/22/20 [History Confirmed 06/22/20] [facility] Medical History (Updated 06/22/20 @ 09:39 by Chelsey Baldwin) Paroxysmal atrial fibrillation (Chronic 02/03/20) Hypercholesterolemia (Chronic) Abdominal pain (Acute) Carpal tunnel syndrome of left wrist (Chronic) Persistent atrial fibrillation with rapid ventricular response (Resolved 02/03/20) Family History (Updated 06/22/20 @ 09:40 by Chelsey Baldwin) Father CVA (cerebral vascular accident) High cholesterol Grandfather High cholesterol CVA (cerebral vascular accident) Social History (Updated 06/22/20 @ 10:[address] Quinton Marin MD) Smoking Status: Never smoker HPI HPI HPI: REGINALD OVALLES, is a 49 M who presents to the office today for HPI HPI Surgical H&P: Yes HPI: REGINALD OVALLES, is a 49 M who presents to the office today for Umbilical hernia. The patient reports that at the end of last week he was lifting something heavy at work and he felt pressure at his umbilical region and noticed a new lump. ROS General General: No weight change, appetite, fatigue, colon cancer, breast cancer or weakness HEENT HEENT: No difficulty swallowing, eye injury, eye surgery, swollen glands or hoarseness Endo Endocrine: No thyroid disease, diabetes mellitus, thyroid cancer, Hair loss, heat intolerance or cold intolerance Skin Skin: No rash or changing moles Breast Breast: No left breast lump, right breast lump, nipple discharge, breast pain, abnormal mammogram, abnormal US or breast enlargement Musc Musculoskeletal: No back problems, arthritis, rheumatoid arthritis, gout or joint pain Cardio Cardiovascular: Yes atrial fibrillation; no murmur, pacemaker, heart disease, high blood pressure, heart attack, heart stent, palpitations, shortness of breat with exertion or chest pain Psych Psychiatric: No depression, anxiety or hearing voices Resp Respiratory: No shortness of breath, No sleep apnea, No cough, No COPD, No asthma, No emphysema, No wheezing Gastro Gastrointestinal: Yes abdominal pain, No nausea or vomiting, No diarrhea, No constipation, No blood in stool, No acid reflux, No hemorrhoids, No ulcers, No gallbladder problem, No black,tarry stools Ray Hematologic: Yes blood thinners, No blood disorders, No bleeding, No anemia, No blood clots Neuro Neurologic: No system reviewed and no additional complaints, except as docu, No as per HPI, No abnormal walking, No abnormal hearing, No abnormal movements, No abnormal speech, No behavioral changes, No burning sensations, No confusion, No seizure-like activity, No unsteadiness, No dizziness, No localized weakness, No frequent falls, No headache(s), No lack of coordination, No loss of vision, No memory loss, No numbness, No other visual disturbances, No radiating pain, No restless legs, No sensory deficit, No fainting, No tingling, No tremor(s), No weakness, No other Exam Const General: cooperative Orientation: alert, oriented x3 Chest Breast Palpation: No nipple discharge Resp Effort & Inspection: normal respiratory effort Auscultation: clear to auscultation bilaterally Cardio Rate: regular rate Rhythm: regular rhythm Heart Sounds: no murmurs GI Inspection: non-distended Palpation: hernia umbilical Assessment & Plan Problems 1. Umbilical hernia without obstruction and without gangrene K42.9 Plan Patient is a small umbilical hernia which was sustained while lifting something heavy at work. I discussed open hernia repair with him. I discussed umbilical hernia repair without mesh due to the size of the small hernia. I recommend suture repair at this time. I discussed surgery with him as well as the risk of bleeding, infection, injury to underlying organs. The patient understands the risks and is willing to proceed with umbilical hernia repair. Quinton Marin MD Pager: [facility] [address] [place] [address], [address] [place] [address] Office: Coding Level of Care Code Off vis,new,level 3 Diagnoses Umbilical hernia without obstruction and without gangrene K42.9 ??Obstruction and gangrene presence: without obstruction or gangrene I have re-examined the patient. There are no clinical changes since date of exam.
[2020-06-30 06:36] VITALS: BP 117/76; PULSE 72; RESP 18; TEMP 36.7; O2SAT 97; BMI 31.0
[2020-06-30] MEDS: Lactated Ringers 1,000 ML 100 ML IV (07:02)
[2020-06-30] MEDS: Cefazolin 2 GM in 0.9% Normal Saline 100 ML IV (07:23)
[2020-06-30] MEDS: Bupiv/Epi 0.5% Mpf 30 ML Vial (07:38)
[2020-06-30 08:02] VITALS: BP 117/76; BP 119/76; PULSE 77; RESP 18; TEMP 36.8; O2SAT 94
--- NOTE | 2020-06-30 08:11 | PCM.OPRPT ---
Problem List (1) Umbilical hernia Status: Acute Qualifiers: Obstruction and gangrene presence: without obstruction or gangrene Qualified Code(s): K42.9 - Umbilical hernia without obstruction or gangrene Report of Operation Date of Procedure: 06/30/20 Pre-Operative Diagnosis: Umbilical hernia Post-Operative Diagnosis: Same Surgery/Procedure Performed:: Umbilical hernia repair Description of Procedure: Patient was brought back to the operating room and general anesthesia was induced. The abdomen was prepped and draped in usual sterile fashion. A curvilinear incision was marked and then anesthetized superior to the umbilicus. The incision was then made with a scalpel and deepened to the fascia using electrocautery. The umbilical stalk was removed from the hernia and the fascia surrounding the hernia was cleared. The hernia was small and closed with interrupted 0 PDS sutures in a transverse fashion. Next the umbilical stalk was sutured to the fascia using 3-0 Vicryl suture. The skin was then closed with running 4-0 Monocryl suture as well as Dermabond glue. A cottonball and dressing were applied. Patient tolerated the procedure well was brought to PACU in stable condition. - Admit VTE Documentation VTE Mechan Device Prophylaxis: SCD's
[2020-06-30 08:14] VITALS: BP 117/76; BP 117/82; PULSE 80; RESP 18; O2SAT 93
--- NOTE | 2020-06-30 08:14 | PCM.DC.HER ---
Discharge Diet: Light diet - advance as tolerated Discharge Activity: Return to Normal Activity, May Not Drive - for 2-3 days or while taking narcotic pain meds., May Shower - with the bandage in place 1-2 days after surgery. Lifting Restrictions: 20 pounds for 4 weeks. Additional Activity Instructions:: Climbing stairs is fine, walking is encouraged. Sitting in bed may be uncomfortable. Sitting up using your lateral muscles (sitting up sideways) is usually more comfortable. Do not drive, work heavy equipment of sign legal documents for 24 hours. Pain medications may cause nausea, you should typically eat light foods as you take your pain medications. Pain medications may also cause constipation. If you have difficulty with this, discuss with your doctor. Call your doctor if your incision/area has: Continuous Slow Oozing, Sudden Increased Bleeding, Increased Pain/ Swelling, Increased Redness, Foul Smelling Discharge Call your doctor if you observe: Fever of 101 or Higher Suture Line Care: Avoid Pulling/Pushing, Avoid Pinching/Bending Change Dressing in (Days):: 3 - Leave steri-strips for 1 week. May protect with a guaze bandaid. Cleanse incision/area with: Keep Dressing Clean & Dry Allergies/Adverse Reactions: Allergies Iodinated Contrast Media [Iodinated Contrast Media - IV Dye] Allergy (Verified 06/30/20 06:31) Anaphylaxis iodine Allergy (Verified 06/30/20 06:31) Rash Medications to take at Discharge Co Q10 200 [Co Q-10] 100 mg PO DAILY 12/02/17 Rosuvastatin Calcium 5 mg PO DAILY 12/02/17 modafinil 200 mg tablet 200 mg PO DAILY PRN tab 02/26/20 aspirin 81 mg tablet,delayed release 81 mg PO DAILY 06/22/20 Oxycodone HCl/Acetaminophen [Percocet 5-325 mg Tablet] 1 - 2 tab PO Q6H PRN PRN 5 Days #15 tab 06/30/20 The following prescriptions were given: Oxycodone HCl/Acetaminophen [Percocet 5-325 mg Tablet] 1 - 2 tab PO Q6H PRN PRN 5 Days #15 tab PRN Reason: Pain Score 4-10/10 Transmission Status: Sent to [facility] Test Results: Test results from this visit will be discussed in further detail at your follow-up appointment, if applicable. Please Follow Up With: Quinton Marin MD When: Please call to schedule 2 week follow up appointment. [phone]
[2020-06-30 08:24] VITALS: BP 117/76; BP 120/83; PULSE 76; RESP 18; TEMP 36.1; O2SAT 93
[2020-06-30 09:26] VITALS: BP 117/76; BP 133/84; PULSE 78; RESP 16; TEMP 36.4; O2SAT 95
== END 2020-06-30 09:38 | disposition home or self-care (01) ==
LOC: SDC 06:09 → AC 06:09
PROVIDERS: Anesthesiology; PCP Nurse Practitioner Family; Referring Provider Surgery; Visit Provider Surgery
PROC: (CPT 49585; principal; 2020-06-30 07:15)
DX: K42.9 Umbilical hernia without obstruction or gangrene (principal); I48.0 Paroxysmal atrial fibrillation; E78.00 Pure hypercholesterolemia, unspecified; Z79.82 Long term (current) use of aspirin; Z20.828 Contact with and (suspected) exposure to other viral communicable diseases
CPT/HCPCS: 00830; 49585; 36415; 80048; 85027; 87426; C9803; J7120; J2405

== ENCOUNTER 2020-08-13 17:39 | Emergency (ER) | payer BC, SELFPAY ==
[2020-08-13 17:39] VITALS: BP 163/96; PULSE 81; RESP 16; TEMP 36.3; O2SAT 98; BMI 32.1
--- NOTE | 2020-08-13 17:55 | EKG12_ITS ---
Test Reason : CP Blood Pressure : / mmHG Vent. Rate : 076 BPM Atrial Rate : 076 BPM P-R Int : 166 ms QRS Dur : 100 ms QT Int : 376 ms P-R-T Axes : 068 074 043 degrees QTc Int : 423 ms Normal sinus rhythm Normal ECG Confirmed by CHARLA MELVIN, WAN ([id number]), greeting card editor OLEG KIRBY ([id number]) on 08/19/2020 9:46:10 A M Referred By: TL Confirmed By:JONATHAN DUNHAM MD
--- NOTE | 2020-08-13 17:55 | RAD_ITS ---
STUDY: X-RAY CHEST REASON FOR EXAM: Male, 49 years old. Sharp sternal chest pain. TECHNIQUE: Single AP portable view of the chest. COMPARISON: 03/23/2020. FINDINGS: The lungs are clear and expanded. There is no demonstrated pleural abnormality. Normal size heart. Normal mediastinum and justyna. Normal visualized pulmonary arteries. Normal visualized aortic arch and descending thoracic aorta. No visualized osseous changes. There is no demonstrated abnormality of the visualized soft tissue structures of the upper abdomen. RAD/Chest 1 View (Portable) IMPRESSION: No acute cardiopulmonary disease or major interval change. Electronically Signed: Gio Beltran DO at 18:11 EST Tel [phone], Service support ,
--- NOTE | 2020-08-13 17:58 | ED.VIS.GEN ---
History of Present Illness Chief Complaint: Chest Pain Informant: Patient Onset: Today Narrative: Patient presents intermittent twinges that would last briefly just left midsternal since 12:30 PM less than 6 hours ago. Diagnosed with atrial fibrillation this past January currently on baby aspirin. Is back in normal sinus rhythm, he did follow-up with Dr. Alexander. He states he was told that it was likely a one-time deal, he did have metoprolol prescription he took twice a day which he has not been taking. However due to the symptoms he took 1 dose. He thinks is 25 mg. Denies nausea dyspnea or recent illness. No cough. No stress test history no heart caths history. No other medical history. States IV dye would cause severe nausea vomiting. Per nursing reports reported tearing chest pain, however he states just squeeze tinging sensation. Prior similar symptoms: No Past Medical History - Allergies and Home Meds Allergies/Adverse Reactions: Allergies Iodinated Contrast Media [Iodinated Contrast Media - IV Dye] Allergy (Verified 08/13/20 17:42) Anaphylaxis iodine Allergy (Verified 08/13/20 17:42) Rash Primary Care Physician: Renetta Ribeiro TRACK SUPERVISOR, TRACK SUPERVISOR-C [Primary Care Provider] - Past Medical History: - - Paroxysmal atrial fibrillation Surgical History: noncontributory, - - Traumatic injury face and neck left side Smoking Status: Never smoker - Family History Paternal Family History: Family History (Last Updated 06/22/20 @ 09:40 by Chelsey Baldwin) Father CVA (cerebral vascular accident) High cholesterol Grandfather High cholesterol CVA (cerebral vascular accident) Family History: Reports: Stroke Review of Systems General: Denies: Chills, Fever, Sweats Eyes: Denies: Visual changes - bilaterally, Diplopia ENT: Denies: Rhinorrhea, Sore throat Cardiovascular: Reports: Palpitations. Denies: Chest pain Respiratory: Denies: Dyspnea, Cough, Dyspnea on exertion Gastrointestinal: Denies: Abdominal pain, Nausea, Vomiting, Diarrhea, Melena, Hematochezia Genitourinary: Denies: Dysuria, Hematuria, Frequency Musculoskeletal: Denies: Back pain, Extremity Pain Skin: Denies: Rash, Wounds Neurological: Denies: Headache, Weakness, Numbness Physical Exam Vital Signs/Narrative: Vital Signs Temp Pulse Resp BP Pulse Ox 08/13/20 17:39 97.3 F L 81 16 163/96 H 98 Inital Vital Signs reviewed: Yes General: Well nourished, Well developed, No Acute Distress Head: Normocephalic, Atraumatic Eyes: Perrl, EOMI ENT: Moist mucous membranes, No rhinorrhea Neck: Supple, Nontender Cardiovascular: Regular rate, Regular rhythm, No murmurs Respiratory: No distress, CTA bilaterally, Chest nontender Abdomen: Soft, Nontender, Nondistended, Normal bowel sounds Back: Nontender, Normal Inspection Extremities: Nontender, No edema Skin: Normal color, No rash Neurological: Alert, Oriented x3, Cranial nerves II-XII grossly intact, Normal Strength, Normal Sensation Psychological: Normal affect, Normal Mood Diagnostic/Tx/Re-eval Chest X-Ray - ED: 1 View, Read by ED Physician, Read by Radiologist, No Acute Disease Clinical Impression(s) from Imaging Studies Chest X-Ray 08/13/20 17:55 IMPRESSION: No acute cardiopulmonary disease or major interval change. Electronically Signed: Gio Beltran DO at 18:11 EST Tel [phone], Service support , Abnormal Lab Results 08/13/20 08/13/20 17:45 17:45 WBC 6.3 RBC 4.93 Hgb 14.6 Hct 44.6 MCV 90.5 MCH 29.6 MCHC 32.7 RDW Std Deviation 37.2 RDW Coeff of [place] 11.1 L Plt Count 234 MPV 10.5 Immature Gran % (Auto) 0.200 Neut % (Auto) 71.2 H Lymph % (Auto) 20.3 Pleas[place] % (Auto) 5.4 Eos % (Auto) 2.1 Baso % (Auto) 0.8 Absolute Neuts (auto) 4.5 Absolute Lymphs (auto) 1.27 Nucleated RBC % 0 Sodium 140 Potassium 3.9 Chloride 107 Carbon Dioxide 28.0 Anion Gap 5 BUN 21 H Creatinine 1.37 H Estim Creat Clear Calc 64.51 Est GFR (MDRD) Af Amer 71 Est GFR (MDRD) Non-Af 58 L BUN/Creatinine Ratio 15.3 Glucose 128 H Calcium 8.6 Magnesium 2.1 Troponin I < 0.015 TSH 3.61 - EKG Initial EKG Interpretation: Sinus Rhythm - Sinus rate of 76, no ST or T wave changes. Prior: Unchanged - Medical Decision Making EKG normal during evaluation on the monitor he had had intermittent symptoms that would correlate with PVCs. This was just 1 beat. Nontoxic. Cardiac work-up initiated for further evaluation. Results returned negative. Patient is having symptomatic PVCs. 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 Discussed and offered obtaining 3-hour delta troponin which she declines at this time. His heart score is a 2. Signs and symptoms discussed to return. Patient is being discharged under pandemic conditions under declared global, national and state disaster activation, with limited medical resources. Patient and community understands this. Results discussed in layman's terms to the patient satisfaction. All questions answered in layman's terms. Patient understands importance of follow-up care as directed. Patient has been instructed to return to the ED immediately if new symptoms, problems, or questions occur. We mutually agree with the plan of disposition. The patient understand that they may call or return with any questions or concerns at any time. ED Disposition - Plan for ED Patient: Disposition: Home or Assisted Living Diagnosis: Chest pain, PVCs (premature ventricular contractions) Instructions: ED Chest Pain, Uncertain Cause, Premature Ventricular Contractions Referrals: Renetta Ribeiro NP, TRACK SUPERVISOR-C [Primary Care Provider] - Parsanna Alexander MD [STAFF PHYSICIAN] - 3-5 Days Additional Instructions: restart your metoprolol.
[2020-08-13 18:16] LABS: Absolute Lymphocyte Count 1.27 X10^3/uL (0.83-4.51); Absolute Neutrophil Count 4.5 X10^3/uL (2.0-7.7); Basophil# 0.05 X10^3/uL; Basophil% 0.8 % (0-1); Eosinophil# 0.13 X10^3/uL; Eosinophils% 2.1 % (0-5); Hematocrit 44.6 % (40-54); Hemoglobin 14.6 g/dL (13.0-16.5); Lymphocyte # 1.27 X10^3/ul (4.0); Lymphocyte % 20.3 % (19-41); Mean Corp Hgb Conc 32.7 g/dL (32-36); Mean Corpuscular Hgb 29.6 pg (27.0-32.0); Mean Corpuscular Volume 90.5 fL (80-94); Mean Platelet Vol. 10.5 fl (6.2-12.0); Monocyte# 0.34 X10^3/uL; Monocyte% 5.4 % (0-10); NRBC Flagged by Analyzer 0 % (0-5); Neutrophil # 4.47 X10^3/uL (2.7-7.7); Neutrophil % 71.2 % (47-70); Platelet Count 234 K/mm3 (150-450); RBC Distribution Width CV 11.1 % (11.6-14.6); RBC Distribution Width SD 37.2 fl (35.1-43.9); Red Blood Count 4.93 M/mm3 (4.6-6.2); White Blood Count 6.3 K/mm3 (4.4-11.0)
[2020-08-13] MEDS: Aspirin 81 MG TAB.CHEW 324 MG PO (18:20)
[2020-08-13 18:21] VITALS: O2SAT 98
[2020-08-13 18:21] LABS: POSITIVE COUNT NO; POSITIVE DIFFERENTIAL NO; POSITIVE MORPHOLOGY NO
[2020-08-13 18:34] LABS: Anion Gap 5 (5-15); BUN 21 mg/dL (7-18); BUN/Creat Ratio 15.3 RATIO (10-20); Calcium,Total 8.6 mg/dL (8.5-10.1); Chloride 107 mmol/L (98-107); Creatinine, Serum 1.37 mg/dL (0.70-1.30); EST Glomerular Filtration Rate 58 mL/min (>60); Est Glom Filt Rate - Afr Amer 71 mL/min (>60); Estimated Creatinine Clearance 64.51 ml/min; Glucose 128 mg/dL (74-106); Magnesium 2.1 mg/dL (1.6-2.6); Potassium 3.9 mmol/L (3.5-5.1); Sodium Level 140 mmol/L (136-145); Thyroid Stim Hormone (TSH) 3.61 uIU/mL (0.358-3.74)
[2020-08-13 18:54] VITALS: BP 133/78; PULSE 72; O2SAT 99
== END 2020-08-13 18:59 | disposition home or self-care (01) ==
PROVIDERS: Emergency Provider Emergency Medicine; PCP Nurse Practitioner Family
DX: R07.9 Chest pain, unspecified (principal); I49.3 Ventricular premature depolarization; I48.0 Paroxysmal atrial fibrillation; Z79.82 Long term (current) use of aspirin
CPT/HCPCS: 71045; 80048; 83735; 84443; 84484; 85025; 93005; 99285; A4216

== ENCOUNTER → 2020-08-31 14:24 | Outpatient (CLI) | payer OTHER, SELFPAY ==
[2020-08-13 17:39] VITALS: BMI 32.1
[2020-08-31 15:24] LABS: ALB/GLOB Ratio 1.3 RATIO (0.9-2.4); AST(SGOT) 20 U/L (15-37); Alanine Aminotransfer ALT/SGPT 37 U/L (16-61); Albumin, Serum 4.2 g/dL (3.2-5.0); Alkaline Phosphatase 76 U/L (45-117); Anion Gap 6 (5-15); BUN 14 mg/dL (7-18); BUN/Creat Ratio 12.2 RATIO (10-20); Calcium,Total 8.8 mg/dL (8.5-10.1); Chloride 105 mmol/L (98-107); Cholesterol 210 mg/dL (200); Creatinine, Serum 1.15 mg/dL (0.70-1.30); EST Glomerular Filtration Rate 71 mL/min (>60); Est Glom Filt Rate - Afr Amer 86 mL/min (>60); Globulin 3.3 g/dL (2.2-4.2); Glucose 97 mg/dL (74-106); High Density Lipoprotein 54 mg/dL; Potassium 4.1 mmol/L (3.5-5.1); Protein, Total 7.5 g/dL (6.4-8.2); Sodium Level 138 mmol/L (136-145); Triglycerides 67 mg/dL; Very Low Density Lipoprotein 13 mg/dL (5-40)
== END ==
PROVIDERS: PCP Nurse Practitioner Family; Visit Provider Nurse Practitioner Family
DX: E78.2 Mixed hyperlipidemia (principal)
CPT/HCPCS: 36415; 80053; 80061

== ENCOUNTER 2020-10-21 20:43 | Emergency (ER) | payer OTHER, SELFPAY ==
[2020-10-21 20:44] VITALS: BP 149/80; PULSE 110; RESP 16; TEMP 36.1; O2SAT 95; BMI 28.0
[2020-10-21 20:46] VITALS: BP 149/80; PULSE 110; RESP 16; TEMP 36.1; O2SAT 95
--- NOTE | 2020-10-21 22:02 | ED.DCSUM_ITS ---
History of Present Illness Chief Complaint: Cough Narrative: 50-year-old male with history of atrial fibrillation presenting with shortness of breath. He states he is not anticoagulated and is only on low-dose aspirin. He states he started having symptoms of COVID-19 on Monday night with a headache and nausea. Patient has had body aches, fever with a T-max of 101.6, loss of taste and smell. He states he does not have difficulty breathing with ambulation but states he has more difficulty breathing when he sleeps at night head does better when he sits up. He does have some chest discomfort which he describes as achy. It has been constant since Monday. - Past Medical History (1) Paroxysmal atrial fibrillation Status: Chronic (2) Hypercholesterolemia Status: Chronic Past Medical History - Allergies and Home Meds Allergies/Adverse Reactions: Allergies Iodinated Contrast Media [Iodinated Contrast Media - IV Dye] Allergy (Verified 10/21/20 20:46) Anaphylaxis iodine Allergy (Verified 10/21/20 20:46) Rash Primary Care Physician: Renetta Ribeiro SPECIAL INVESTIGATOR, SPECIAL INVESTIGATOR-C [Primary Care Provider] - Prior records reviewed: Yes Past Medical History: - - Reviewed in problem list Surgical History: noncontributory, - - Traumatic injury face and neck left side Lives: Spouse/ Significant Other Smoking Status: Never smoker - Family History Paternal Family History: Family History (Last Reviewed 10/13/20 @ 08:11 by Cristela Garcia) Father CVA (cerebral vascular accident) High cholesterol Grandfather High cholesterol CVA (cerebral vascular accident) Family History: Reports: Stroke Review of Systems General: Reports: Fever, Malaise Eyes: Denies: Visual changes - bilaterally, Diplopia ENT: Denies: Rhinorrhea, Sore throat Cardiovascular: Reports: Chest pain. Denies: Palpitations, Heart racing Respiratory: Reports: Dyspnea, Cough Gastrointestinal: Denies: Abdominal pain, Nausea, Vomiting Genitourinary: Denies: Dysuria, Hematuria Musculoskeletal: Reports: Myalgias. Denies: Arthralgias Skin: Reports: Rash. Denies: Abscess Neurological: Reports: Headache, Weakness, Parasthesia Psych: Denies: Depression, Anxiety Physical Exam Vital Signs/Narrative: Vital Signs Temp Pulse Resp BP Pulse Ox 10/21/20 20:46 97 F L 110 H 16 149/80 H 95 10/21/20 20:44 97 F L 110 H 16 149/80 H 95 Inital Vital Signs reviewed: Yes General: Well nourished, No Acute Distress Head: Normocephalic, Atraumatic Eyes: Perrl, EOMI ENT: Moist mucous membranes, No rhinorrhea Cardiovascular: Regular rhythm, Tachycardia Respiratory: No distress, CTA bilaterally Abdomen: Soft, Nontender Extremities: Nontender, No edema Skin: Normal color, No rash Neurological: Alert, Oriented x3, Cranial nerves II-XII grossly intact Psychological: Normal affect, Normal Mood Diagnostic/Tx/Re-eval Clinical Impression(s) from Imaging Studies Chest X-Ray 10/21/20 22:33 IMPRESSION: No acute thoracic pathology. Electronically Signed: Lenin Marie MD at 22:49 EST Tel , Service support , Laboratory Data 10/21/20 10/21/20 22:25 22:25 WBC 3.0 L RBC 4.80 Hgb 14.6 Hct 44.5 MCV 92.7 MCH 30.4 MCHC 32.8 RDW Std Deviation 39.3 RDW Coeff of Katy 11.5 L Plt Count 131 L MPV 10.3 Immature Gran % (Auto) 0.000 Neut % (Auto) 73.2 H Lymph % (Auto) 17.1 L Swain % (Auto) 9.7 Eos % (Auto) 0.0 Baso % (Auto) 0.0 Absolute Neuts (auto) 2.2 Absolute Lymphs (auto) 0.51 L Nucleated RBC % 0 Differential Comment SCANNED Diff Path Review December foll Sodium 139 Potassium 4.0 Chloride 104 Carbon Dioxide 30.0 Anion Gap 5 BUN 18 Creatinine 1.13 Estim Creat Clear Calc 77.34 Est GFR (MDRD) Af Amer 88 Est GFR (MDRD) Non-Af 73 BUN/Creatinine Ratio 15.9 Glucose 99 Calcium 8.2 L Troponin I < 0.015 - Rhythm Strip Rhythm Strip: Sinus Rhythm Rate: 93 - EKG Initial EKG Interpretation: Sinus Rhythm, No Acute Injury Pattern - Medical Decision Making 50-year-old male presenting with chest discomfort. He was diagnosed with Covid Monday with symptom onset on Monday. Patient still has low-grade fevers, loss of taste and smell, body aches. Patient states he is eating and drinking normally. Patient had EKG on arrival which showed a sinus rhythm with ischemic changes. Chest x-ray is interpreted by myself shows no acute cardiopulmonary process. Patient's blood work shows a white blood cell count of 3.0 platelet of 131 absolute lymphocyte count of 0.51 renal function and electrolytes are normal. Troponin is negative. Patient is resting comfortably with a heart rate of 68, blood pressure 118/77 respirate of 14 and pulse ox of 94 to 95%. I have low clinical suspicion for pulmonary embolism at this time. Patient was counseled that given his constant discomfort in his chest this is not cardiac however he will monitor his pulse ox at home as well as his heart rate. If he starts to have severe pain or shortness of breath or to have hypoxia he should return to the ED for repeat evaluation. Amenable to this plan. Impression: 1. Covid?19. 2. Chest pain ED Disposition - Plan for ED Patient: Disposition: Home or Assisted Living Instructions: Coronavirus Disease 2019 (COVID-19): Caring for Yourself or Others, Preventing the Spread of Infection Understanding Isolation Procedures, ED Chest Pain, Noncardiac Referrals: Renetta Ribeiro NP, SPECIAL INVESTIGATOR-C [Primary Care Provider] -
--- NOTE | 2020-10-21 22:03 | EKG12_ITS ---
Test Reason : SOB Blood Pressure : / mmHG Vent. Rate : 093 BPM Atrial Rate : 093 BPM P-R Int : 148 ms QRS Dur : 082 ms QT Int : 346 ms P-R-T Axes : 051 076 040 degrees QTc Int : 430 ms Normal sinus rhythm Normal ECG Confirmed by CHARLA MELVIN, WAN ([id number]), news copy editor OLEG KIRBY ([id number]) on 10/26/2020 9:52:43 AM Referred By: EDWIN Confirmed By:JONATHAN DUNHAM MD
--- NOTE | 2020-10-21 22:33 | RAD_ITS ---
STUDY: X-RAY CHEST REASON FOR EXAM: Male, 50 years old. Chest pain TECHNIQUE: Frontal view of the chest COMPARISON: 08/13/20 FINDINGS: The lungs are clear. There are no pleural effusions. There is no pneumothorax. The heart is normal in size. The visualized osseous structures are within normal limits. RAD/Chest 1 View (Portable) IMPRESSION: No acute thoracic pathology. Electronically Signed: Lenin Marie MD at 22:49 EST Tel , Service support ,
[2020-10-21 22:35] LABS: Absolute Lymphocyte Count 0.51 X10^3/uL (0.83-4.51); Absolute Neutrophil Count 2.2 X10^3/uL (2.0-7.7); Hematocrit 44.5 % (40-54); Hemoglobin 14.6 g/dL (13.0-16.5); Lymphocyte # 0.51 X10^3/ul (4.0); Lymphocyte % 17.1 % (19-41); Mean Corp Hgb Conc 32.8 g/dL (32-36); Mean Corpuscular Hgb 30.4 pg (27.0-32.0); Mean Corpuscular Volume 92.7 fL (80-94); Mean Platelet Vol. 10.3 fl (6.2-12.0); Monocyte# 0.29 X10^3/uL; Monocyte% 9.7 % (0-10); NRBC Flagged by Analyzer 0 % (0-5); Neutrophil # 2.18 X10^3/uL (2.7-7.7); Neutrophil % 73.2 % (47-70); POSITIVE DIFFERENTIAL YES; Platelet Count 131 K/mm3 (150-450); RBC Distribution Width CV 11.5 % (11.6-14.6); RBC Distribution Width SD 39.3 fl (35.1-43.9)
[2020-10-21 22:39] LABS: Differential Indicated SCAN CRITERIA MET
[2020-10-21 22:49] VITALS: BP 118/77; PULSE 68; RESP 14; O2SAT 94
[2020-10-21 22:55] LABS: Anion Gap 5 (5-15); BUN 18 mg/dL (7-18); BUN/Creat Ratio 15.9 RATIO (10-20); Calcium,Total 8.2 mg/dL (8.5-10.1); Chloride 104 mmol/L (98-107); Creatinine, Serum 1.13 mg/dL (0.70-1.30); EST Glomerular Filtration Rate 73 mL/min (>60); Est Glom Filt Rate - Afr Amer 88 mL/min (>60); Estimated Creatinine Clearance 77.34 ml/min; Glucose 99 mg/dL (74-106); Sodium Level 139 mmol/L (136-145)
[2020-10-21 22:57] LABS: Differential Comment SCANNED
[2020-10-21 23:26] VITALS: O2SAT 94
[2020-10-22 00:04] VITALS: BP 126/81; PULSE 77; RESP 14; O2SAT 94
[2020-10-22 13:05] LABS: Pathologist Review Reviewed
== END 2020-10-22 00:04 | disposition home or self-care (01) ==
PROVIDERS: Emergency Provider Student in an Organized Health Care Education/Training Program; PCP Nurse Practitioner Family
DX: U07.1 COVID-19 (principal); R07.9 Chest pain, unspecified; I48.0 Paroxysmal atrial fibrillation; E78.00 Pure hypercholesterolemia, unspecified
CPT/HCPCS: 71045; 80048; 84484; 85025; 93005; 99284; A4216

== ENCOUNTER → 2022-03-02 | Outpatient (CLI) | payer OTHER, SELFPAY ==
[2022-03-02 12:03] LABS: ALB/GLOB Ratio 1.3 RATIO (0.9-2.4); AST(SGOT) 25 U/L (15-37); Alanine Aminotransfer ALT/SGPT 26 U/L (16-61); Albumin, Serum 3.9 g/dL (3.2-5.0); Alkaline Phosphatase 68 U/L (45-117); Anion Gap 4 (5-15); BUN 12 mg/dL (7-18); Calcium,Total 8.8 mg/dL (8.5-10.1); Chloride 106 mmol/L (98-107); Cholesterol 199 mg/dL (200); EST Glomerular Filtration Rate 83 mL/min (>60); Est Glom Filt Rate - Afr Amer 101 mL/min (>60); Glucose 99 mg/dL (74-106); High Density Lipoprotein 58 mg/dL; Potassium 3.9 mmol/L (3.5-5.1); Protein, Total 6.9 g/dL (6.4-8.2); Sodium Level 139 mmol/L (136-145); Triglycerides 98 mg/dL; Very Low Density Lipoprotein 20 mg/dL (5-40)
== END | disposition home or self-care (01) ==
PROVIDERS: PCP Nurse Practitioner Family; Referring Provider Nurse Practitioner Family; Visit Provider Nurse Practitioner Family
DX: E78.2 Mixed hyperlipidemia (principal)
CPT/HCPCS: 36415; 80053; 80061

== ENCOUNTER 2023-03-21 09:13 | Day surgery (SDC) | payer OTHER, SELFPAY ==
[2023-03-21] VITALS (7 sets, daily range): BP systolic 103–124; BP diastolic 71–82; PULSE 66–76; RESP 16; TEMP 36.4–36.5; O2SAT 95–97; BMI 28.8
[2023-03-21] MEDS: Lactated Ringers 1,000 ML 15 ML IV (09:45)
--- NOTE | 2023-03-21 09:53 | PCM.HP.BLA ---
History and Physical Date of Admission: 03/21/23 Intake Vital Signs 02/22/2308:34 Height 5 ft 9 in Weight: 202 lb BMI 29.8 BP 132/79 H Blood Pressure Location Rt brachial Position Sitting Respiration 17 Pulse 72 Pulse Source Monitor Temp 97.3 F L Temp Source Temporal Pulse Oximetry (%) 95 Oxygen Delivery Method room air Intake Visit Reasons: C-Scope Chief Complaint: c-scope Is patient in pain?: No Allergies Iodinated Contrast Media [Iodinated Contrast Media - IV Dye] Allergy (Verified 02/21/23 08:35) Anaphylaxisiodine Allergy (Verified 02/21/23 08:35) Rash Medications coenzyme Q10 100 mg capsule 100 mg PO DAILY supplement 12/02/17 [History Confirmed 02/21/23] rosuvastatin 5 mg tablet 5 mg PO DAILY cholesterol 12/02/17 [History Confirmed 02/21/23] aspirin 81 mg tablet,delayed release (Adult Aspirin Regimen) 81 mg PO DAILY 06/22/20 [History Confirmed 02/21/23] [facility] Medical History (Updated 02/21/23 @ 08:34 by Vivien Will) Abdominal pain Acute pharyngitis, unspecified Carpal tunnel syndrome of left wrist Contact with and (suspected) exposure to other viral communicable diseases Hypercholesterolemia Impacted cerumen, bilateral Paroxysmal atrial fibrillation (02/03/20) Persistent atrial fibrillation with rapid ventricular response (02/03/20) Umbilical hernia Surgical History History of umbilical hernia repair (06/2020) Family History Father CVA (cerebral vascular accident) High cholesterolGrandfather High cholesterol CVA (cerebral vascular accident) Social History Smoking Status: Never smoker alcohol intake: current substance use type: does not use HPI HPI HPI: Patient is a 52-year-old male who is here for positive Cologuard. He has never had a colonoscopy in the past. He denies family history of colon cancer. He has no abdominal pain or blood in his stool. ROS General General: No weight change, appetite, fatigue, colon cancer, breast cancer or weakness HEENT HEENT: No difficulty swallowing, eye injury, eye surgery, swollen glands or hoarseness Endo Endocrine: No thyroid disease, diabetes mellitus, thyroid cancer, Hair loss, heat intolerance or cold intolerance Skin Skin: No rash or changing moles Musc Musculoskeletal: No back problems, arthritis, rheumatoid arthritis, gout or joint pain Cardio Cardiovascular: No murmur, pacemaker, heart disease, atrial fibrillation, high blood pressure, heart attack, heart stent, palpitations, shortness of breat with exertion or chest pain Psych Psychiatric: No depression, anxiety or hearing voices Resp Respiratory: No shortness of breath, No sleep apnea, No cough, No COPD, No asthma, No emphysema and No wheezing Gastro Gastrointestinal: No abdominal pain, No nausea or vomiting, No diarrhea, No constipation, No blood in stool, No acid reflux, No hemorrhoids, No ulcers, No gallbladder problem and No black,tarry stools Ray Hematologic: No blood thinners, No blood disorders, No bleeding, No anemia and No blood clots Neuro Neurologic: No system reviewed and no additional complaints, except as documented, No as per HPI, No abnormal gait, No abnormal hearing, No abnormal movements, No abnormal speech, No behavioral changes, No burning sensations, No confusion, No convulsions, No disequilibrium, No dizziness, No localized weakness, No frequent falls, No headache(s), No lack of coordination, No loss of vision, No memory loss, No numbness, No other visual disturbances, No radicular pain, No restless legs, No sensory deficit, No syncope, No tingling, No tremor(s), No weakness and No other Exam Const General: cooperative Orientation: alert and oriented x3 HENMT Head: normal to inspection Neck Neck: normal visual inspection and full ROM Chest Chest palpation & inspection: normal inspection of the chest Resp Effort & Inspection: normal respiratory effort Auscultation: clear to auscultation bilaterally Cardio Rate: regular rate Rhythm: regular rhythm GI Inspection: non-distended Palpation: soft and nontender Skin General: no rashes or lesions noted Neuro General: patient alert and patient oriented x3 Extrem General: full ROM Psych Appearance: grossly normal Mental Status: mental status grossly normal Assessment and Plan Assessment and Plan (1) Positive colorectal cancer screening using Cologuard test: Status: Acute Plan: Plan for colonoscopy for positive Cologuard. I explained endoscopy in detail to the patient. I explained the risks including but not limited to stroke or heart attack with anesthesia, perforation of the GI tract, bleeding, infection. I explained that any of these could necessitate further emergency surgery. The patient understands and all questions were answered sufficiently. The patient wishes to proceed with procedure. Quinton Marin MD Pager: [facility] [address] [place] [address], [address] [place] [address] Office: I have examined the patient and the H&P has been reviewed. There are no clinical changes since date of exam.
--- NOTE | 2023-03-21 10:28 | OP.COLON_ITS ---
Patient Name: Vinicius Gomes Procedure Date: 03/21/2023 10:03 AM Date of : 1970 Age: 52 Procedure: Colonoscopy Indications: Positive Cologuard test Providers: Quinton Marin MD Referring MD: Renetta Ribeiro Medicines: Monitored Anesthesia Care Patient Profile: This is a 52 year old male. Refer to note in patient chart for documentation of history and physical. Last Colonoscopy: none. The patient's first colonoscopy is today. Complications: No immediate complications. Procedure: Pre-Anesthesia Assessment: - Prior to the procedure, a History and Physical was performed, and patient medications and allergies were reviewed. The patient's tolerance of previous anesthesia was also reviewed. The risks and benefits of the procedure and the sedation options and risks were discussed with the patient. All questions were answered, and informed consent was obtained. Prior Anticoagulants: The patient has taken no previous anticoagulant or antiplatelet agents. After reviewing the risks and benefits, the patient was deemed in satisfactory condition to undergo the procedure. After I obtained informed consent, the scope was passed under direct vision. Throughout the procedure, the patient's blood pressure, pulse, and oxygen saturations were monitored continuously. The Colonoscope was introduced through the anus and advanced to the cecum, identified by appendiceal orifice and ileocecal valve. The colonoscopy was performed without difficulty. The patient tolerated the procedure well. The quality of the bowel preparation was good. Scope In: 10:12:46 AM Scope Withdrawal Time 0 hours 6 minutes 9 seconds Scope Out: 10:23:13 AM Total Procedure Duration Time 0 hours 10 minutes 27 seconds Findings: The entire examined colon appeared normal on direct and retroflexion views. Impression: - The entire examined colon is normal on direct and retroflexion views. - No specimens collected. Recommendation: - Discharge patient to home. - Resume previous diet. - Continue present medications. - Repeat colonoscopy in 10 years for screening purposes. Procedure Code(s): --- Professional --- 27739, Colonoscopy, flexible; diagnostic, including collection of specimen(s) by brushing or washing, when performed (separate procedure) Diagnosis Code(s): --- Professional --- R19.5, Other fecal abnormalities CPT copyright 2017 [employer]. All rights reserved. The codes documented in this report are preliminary and upon record producer review may be revised to meet current compliance requirements. Quinton Marin MD 03/21/2023 10:27:41 AM This report has been signed electronically. Number of Addenda: 0 Note Initiated On: 03/21/2023 10:03 AM
--- NOTE | 2023-03-21 10:28 | OP.CCLET_ITS ---
03/21/2023 Renetta Ribeiro Re : Colonoscopy procedure for Vinicius Ours Dear Quintin This procedure was performed on Tuesday, March 21, 2023. My impressions and recommendations are as follows: Impressions : - The entire examined colon is normal on direct and retroflexion views. - No specimens collected. Recommendations : - Discharge patient to home. - Resume previous diet. - Continue present medications. - Repeat colonoscopy in 10 years for screening purposes. My findings are described in the full procedure note, which is enclosed. If I can be of further assistance, please feel free to contact me at Doctor phone number(s): , Work: . Sincerely, Quinton Marin MD 03/21/2023 10:27:41 AM This report has been signed electronically.
== END 2023-03-21 11:26 | disposition home or self-care (01) ==
LOC: EN 09:14 → AC 09:16
PROVIDERS: PCP Nurse Practitioner Family; Referring Provider Nurse Practitioner Family; Visit Provider Surgery
PROC: 0DJD8ZZ Inspection of Lower Intestinal Tract, Via Natural or Artificial Opening Endoscopic (ICD-10-PCS; CPT 45378; principal; 2023-03-21 10:10)
DX: R19.5 Other fecal abnormalities (principal); I48.0 Paroxysmal atrial fibrillation; Z79.82 Long term (current) use of aspirin
CPT/HCPCS: 45378; J7120; J2405